=== PATIENT | male | born 1950 | race Hispanic/Latino ===

== ENCOUNTER 2018-09-08 05:30 | Day surgery (SDC) | payer OTHER ==
[~2018-09-08] VITALS: Ht 165.1 cm; Wt 99.8 kg
[~2018-09-08 05:30] MED LIST: AMLO5TAB9 PO; CLOP75TA32 PO; INSLAN SQ; LOSA1TAB54 PO; METF-446 PO; METO-391 PO; PRED20TA3 PO; SIMV40TA5 PO; SODIUM CHLORIDE 0.9% 1000ML 1,000 ML IV ONE; SPIR25TA PO; TERA5CAP4 PO; TRAM50TA4 PO
[2018-09-08 09:22] VITALS: BP 150/72
[2018-09-08] MEDS ORDERED: PROPOFOL 10 MG/ML 20ML VIAL IV ONE (10:33)
[2018-09-08 11:11] VITALS: BP 118/55
[2018-09-08 11:16] VITALS: BP 127/64
[2018-09-08 11:21] VITALS: BP 132/67
[2018-09-08 11:26] VITALS: BP 125/61
[2018-09-08 11:30] VITALS: BP 143/77
== END 2018-09-08 12:05 | disposition home or self-care (01) ==
LOC: ENDO 05:30 → DAH 05:30 → ENDO 12:05
PROVIDERS: ATTEND Internal Medicine Gastroenterology
DX: C18.0 Malignant neoplasm of cecum (principal); K64.0 First degree hemorrhoids; I10 Essential (primary) hypertension; Z86.010 Personal history of colon polyps; K57.30 Diverticulosis of large intestine without perforation or abscess without bleeding; E78.5 Hyperlipidemia, unspecified; E11.9 Type 2 diabetes mellitus without complications; M19.90 Unspecified osteoarthritis, unspecified site; I25.10 Atherosclerotic heart disease of native coronary artery without angina pectoris; Z68.37 Body mass index [BMI] 37.0-37.9, adult; Z98.890 Other specified postprocedural states
CPT/HCPCS: 45380; 45381; 82948 ×2; 88305; 93005; A4606; J2704; J7030

== ENCOUNTER → 2018-10-02 | Outpatient (CLI) | payer OTHER ==
[~2018-10-02] MED LIST changes: -CLOP75TA32 PO; -SODIUM CHLORIDE 0.9% 1000ML 1,000 ML IV ONE
[2018-10-02 12:39] LABS: ALBUMIN 2.9 g/dL (3.5-5.0); BILIRUBIN,TOTAL 0.3 mg/dL (0.2-1.0); CREATININE 0.9 mg/dL (0.5-1.5); POTASSIUM 3.2 mmol/L (3.5-5.1); TOTAL PROTEIN, SERUM 6.2 g/dL (6.0-8.3)
== END | disposition home or self-care (01) ==
LOC: LAB 11:26
PROVIDERS: ATTEND Internal Medicine Gastroenterology
DX: C18.9 Malignant neoplasm of colon, unspecified (principal)
CPT/HCPCS: 36415; 80053; 82378

== ENCOUNTER → 2018-10-05 | Outpatient (CLI) | payer OTHER ==
[~2018-10-05] MED LIST changes: +IOHEXOL 350 MG/ML 100ML INFUS..BTL IV ONE
== END | disposition home or self-care (01) ==
LOC: RAH 07:08
PROVIDERS: ATTEND Internal Medicine Gastroenterology
DX: C18.9 Malignant neoplasm of colon, unspecified (principal); K76.89 Other specified diseases of liver; I25.10 Atherosclerotic heart disease of native coronary artery without angina pectoris; N32.89 Other specified disorders of bladder; M51.34 Other intervertebral disc degeneration, thoracic region
CPT/HCPCS: 71270; 74178; Q9967

== ENCOUNTER → 2019-05-26 | Outpatient (CLI) | payer OTHER ==
[~2019-05-26] MED LIST changes: -IOHEXOL 350 MG/ML 100ML INFUS..BTL IV ONE; +SIMV-46 PO; -SIMV40TA5 PO
== END | disposition home or self-care (01) ==
LOC: OIH 13:22
PROVIDERS: ATTEND Family Medicine
DX: M47.812 Spondylosis without myelopathy or radiculopathy, cervical region (principal); M19.012 Primary osteoarthritis, left shoulder; M47.814 Spondylosis without myelopathy or radiculopathy, thoracic region; I13.0 Hypertensive heart and chronic kidney disease with heart failure and stage 1 through stage 4 chronic kidney disease, or unspecified chronic kidney disease
CPT/HCPCS: 71046; 72040; 73030

== ENCOUNTER 2020-01-18 07:40 | Day surgery (SDC) | payer OTHER ==
[~2020-01-18] VITALS: Ht 165.1 cm; Wt 88.5 kg
[2020-01-18] VITALS (7 sets, daily range): BP systolic 115–157; BP diastolic 60–79
[~2020-01-18 07:40] MED LIST changes: +AMLO-257 PO; -AMLO5TAB9 PO; +CLOP75TA32 PO; +GABA300C PO; +GLIP10TA9 PO; -INSLAN SQ; -LOSA1TAB54 PO; +POTA-79 PO; -PRED20TA3 PO; +SODIUM CHLORIDE 0.9% 1000ML 1,000 ML IV ONE; -SPIR25TA PO; +TAMS-1 PO; -TRAM50TA4 PO
[2020-01-18] MEDS ORDERED: MIDAZOLAM HCL 1 MG/ML 2ML VIAL ONE (09:27)
[2020-01-18] MEDS ORDERED: PROPOFOL 10 MG/ML 20ML VIAL IV ONE (09:27)
--- NOTE | 2020-01-18 09:45 | NUR ---
Pt received Pt received from GI lab via stretcher accompanied by EDWARD Gaytan. Pt awake but drowsy. O2 via face mask a 10l/min. Pt appears comfortable in no distress.
--- NOTE | 2020-01-18 10:20 | NUR ---
D/C Pt prepared for d/c. Pt AAX x3. Denies any distress. Verbal discharge instructions with f/u appt info given to son over the phone. Written instructions with appt info given to pt. Verbalized understanding. Pt was then taken to private vehicle via w/c where son was awaiting.
== END 2020-01-18 10:27 ==
LOC: ENDO 07:40 → DAH 07:40 → ENDO 10:27
PROVIDERS: ATTEND Internal Medicine
DX: C18.9 Malignant neoplasm of colon, unspecified (principal); K57.30 Diverticulosis of large intestine without perforation or abscess without bleeding; K64.0 First degree hemorrhoids; Z98.0 Intestinal bypass and anastomosis status; Z20.828 Contact with and (suspected) exposure to other viral communicable diseases; I10 Essential (primary) hypertension; I25.10 Atherosclerotic heart disease of native coronary artery without angina pectoris; E11.9 Type 2 diabetes mellitus without complications; E66.01 Morbid (severe) obesity due to excess calories; E78.5 Hyperlipidemia, unspecified; M19.90 Unspecified osteoarthritis, unspecified site; Z98.890 Other specified postprocedural states; Z79.4 Long term (current) use of insulin; Z79.899 Other long term (current) drug therapy; Z68.31 Body mass index [BMI] 31.0-31.9, adult
CPT/HCPCS: 36415; 45378; 82948 ×2; 93005; A4215; A4222; A4223; A4606; A4620; A4657 ×2; A4663; C9803; J2250; J2704; J7030; U0003

== ENCOUNTER 2020-02-08 08:20 | Day surgery (SDC) | payer OTHER ==
[~2020-02-08] VITALS: Ht 165.1 cm; Wt 88.7 kg
[2020-02-08 08:50] VITALS: BP 162/90
[2020-02-08] MEDS ORDERED: POTASSIUM PO (09:25)
[2020-02-08] MEDS ORDERED: PREDNISONE PO (09:25)
[2020-02-08] MEDS ORDERED: CLEARLAX PO (09:26)
[2020-02-08] MEDS ORDERED: PROPOFOL 10 MG/ML 20ML VIAL IV ONE (10:18)
[2020-02-08] MEDS ORDERED: MIDAZOLAM HCL 1 MG/ML 2ML VIAL ONE (10:18)
[2020-02-08 10:45] VITALS: BP 124/61
--- NOTE | 2020-02-08 10:45 | NUR ---
post gi received pt and report from bria lynn. pt in no distress at this time. pt connected to lunchroom monitor. will continue to assess
[2020-02-08 11:00] VITALS: BP 121/70
[2020-02-08 11:15] VITALS: BP 125/67
--- NOTE | 2020-02-08 11:20 | NUR ---
discharge pt and sister given d/c instructions. sister verbalized understanding. pt taken out via w/c in no distress.
== END 2020-02-08 11:20 | disposition home or self-care (01) ==
LOC: DAH 08:20 → ENDO 08:20
PROVIDERS: ATTEND Internal Medicine Gastroenterology
DX: C18.0 Malignant neoplasm of cecum (principal); K63.5 Polyp of colon; K57.30 Diverticulosis of large intestine without perforation or abscess without bleeding; K64.0 First degree hemorrhoids; E11.9 Type 2 diabetes mellitus without complications; I10 Essential (primary) hypertension; E78.5 Hyperlipidemia, unspecified; I25.10 Atherosclerotic heart disease of native coronary artery without angina pectoris; R93.89 Abnormal findings on diagnostic imaging of other specified body structures; M19.90 Unspecified osteoarthritis, unspecified site; Z79.4 Long term (current) use of insulin; Z79.899 Other long term (current) drug therapy; E66.01 Morbid (severe) obesity due to excess calories; Z98.0 Intestinal bypass and anastomosis status; Z20.828 Contact with and (suspected) exposure to other viral communicable diseases
CPT/HCPCS: 36415; 45380; 82948 ×2; 93005; A4215; A4221; A4222; A4223; A4606; A4620; A4657 ×3; A4663; C9803; J2250; J2704; J7030; U0003

== ENCOUNTER → 2022-11-27 | Outpatient (CLI) | payer OTHER ==
[~2022-11-27] MED LIST changes: +CLEARLAX PO; -GABA300C PO; -POTA-79 PO; +POTASSIUM PO; +PREDNISONE PO; -SODIUM CHLORIDE 0.9% 1000ML 1,000 ML IV ONE
== END | disposition home or self-care (01) ==
LOC: RAH 12:09
PROVIDERS: ATTEND Internal Medicine Medical Oncology
DX: E04.2 Nontoxic multinodular goiter (principal); D34 Benign neoplasm of thyroid gland
CPT/HCPCS: 76536

== ENCOUNTER → 2023-01-28 | Outpatient (CLI) | payer OTHER ==
[2023-01-28 08:12] LABS: INR 0.97 (0.85-1.15); PROTHROMBIN TIME 11.3 SEC (9.6-11.6)
[2023-01-28 08:14] LABS: PARTIAL THROMBOPLASTIN TIME 27.3 SEC (26.3-35.5)
== END ==
LOC: RAH 07:03
PROVIDERS: ATTEND Internal Medicine Medical Oncology
DX: E04.9 Nontoxic goiter, unspecified (principal); I25.10 Atherosclerotic heart disease of native coronary artery without angina pectoris; I63.9 Cerebral infarction, unspecified; I10 Essential (primary) hypertension; E11.9 Type 2 diabetes mellitus without complications; E78.5 Hyperlipidemia, unspecified; D50.8 Other iron deficiency anemias; K90.9 Intestinal malabsorption, unspecified; E86.0 Dehydration; E87.6 Hypokalemia; M06.9 Rheumatoid arthritis, unspecified; H26.9 Unspecified cataract; K64.9 Unspecified hemorrhoids; M54.9 Dorsalgia, unspecified; Z88.8 Allergy status to other drugs, medicaments and biological substances; Z83.3 Family history of diabetes mellitus; Z80.9 Family history of malignant neoplasm, unspecified; Z79.84 Long term (current) use of oral hypoglycemic drugs; Z79.890 Hormone replacement therapy; Z79.899 Other long term (current) drug therapy
CPT/HCPCS: 10005; 36415; 76942; 85610; 85730; 88112; 88305